=== PATIENT | female | born 1970 | race Caucasian/White ===

== ENCOUNTER 2018-04-11 10:43 | Emergency (ER) | payer SELFPAY ==
[2018-04-11] MEDS ORDERED: fentaNYL* 50 MCG/ML 2 ML VIAL (100 MCG VIAL) IV SLOW PU ONE (11:00)
[2018-04-11] MEDS ORDERED: Ketorolac INJ* 30 MG/ML 1 ML VIAL IV PUSH ONE (11:00)
--- NOTE | 2018-04-11 11:02 | ED ---
Adult Trauma - HPI Summary HPI Summary: This patient is a 48 year old F [facility] [place] /p being kicked in the ABD by a horse that occurred at 0800 this morning. Pt works as a hands assembler for [employer] and today while she was taking care of the horses she got kicked. She was able to finish her work before seeking medical attention. The patient rates the pain 3/10 in severity. Patient reports pain with breathing and labored breathing. Patient denies head injury and LOC. Pt went to [facility] and was sent here for further work up. Patient is currently menstruating. - History of Current Complaint Chief Complaint: EDTraumaMultiple Stated Complaint: KICKED BY A HORSE IN STOMACH Time Seen by Provider: 04/11/18 10:49 Hx Obtained From: Patient Mechanism of Injury: Blunt Trauma Ambulatory at the Scene: Yes Loss of Consciousness: no loss of consciousness Onset/Duration: Started Hours Ago, Still Present Onset of Pain: Immediate Onset Severity: Moderate Current Severity: Mild Pain Intensity: 3 Pain Scale Used: 0-10 Numeric Location: Abdomen/Pelvis Associated Signs & Symptoms: Positive: Abdominal Pain. Negative: Loss of Consciousness Related History: Occupational Injury - Allergy/Home Medications Allergies/Adverse Reactions: Allergies Allergy/AdvReac Type Severity Reaction Status Date / Time Iodinated Contrast- Oral and Allergy Intermediate Rash And Verified 04/11/18 12: 29 IV Dye Itching Home Medications: Home Medications Norgestimate-Ethinyl Estradiol [Estarylla 0.25-0.035 mg Tablet] 1 tab PO DAILY 04/11/18 [History Confirmed 04/11/18] PMH/Surg Hx/FS Hx/Imm Hx Endocrine/Hematology History: Denies: Hx Bone Marrow Disease, Hx Sickle Cell Disease, Hx Unexplained Bleeding Cardiovascular History: Denies: Hx Atrial Fibrillation, Hx Auto Implanted Cardiovert Defib, Hx Cardiomegaly, Hx Coronary Artery Disease, Hx Deep Vein Thrombosis, Hx Hypotension, Hx Myocardial Infarction, Hx Peripheral Vascular Disease Respiratory History: Denies: Hx Chronic Bronchitis, Hx Pulmonary Embolism GI History: Denies: Hx Gall Bladder Disease, Hx Hiatal Hernia History: Reports: Hx Kidney Infection Musculoskeletal History: Denies: Hx Rheumatoid Arthritis, Hx Congenital Bone Abnormalities, Hx Fibromyalgia Psychiatric History: Denies: Hx Schizophrenia, Hx Bipolar Disorder, Hx of Violent Episodes Against Others - Cancer History Hx Chemotherapy: No Hx Radiation Therapy: No Infectious Disease History: No Infectious Disease History: Denies: Traveled Outside the [place] in Last 30 Days - Family History Known Family History: Negative: Hypertension, Respiratory Disease, Blood Disorder - Social History Occupation: Employed Full-time Lives: With Family Alcohol Use: Occasionally Hx Substance Use: No Substance Use Type: Reports: None Hx Tobacco Use: No Smoking Status (MU): Never Smoked Tobacco Review of Systems Negative: Fever Positive: Other - pain with breathing and labored breathing. Positive: Abdominal Pain Negative: Syncope All Other Systems Reviewed And Are Negative: Yes Physical Exam - Summary Physical Exam Summary: Appearance: Well appearing, no pain distress Skin: there is slight redness in the RUQ Head/face: normal Eyes: EOMI, ARNIE ENT: normal Neck: supple, non-tender Respiratory: CTA, breath sounds present everywhere Cardiovascular: RRR, pulses symmetrical Abdomen: soft, TTP in the RUQ ad epigastrium Bowel Sounds: present Musculoskeletal: normal, strength/ROM intact Neuro: normal, sensory motor intact, A&Ox3 Triage Information Reviewed: Yes Vital Signs On Initial Exam: Initial Vitals Temp Pulse Resp BP Pulse Ox 97.7 F 80 16 143/95 100 04/11/18 10:46 04/11/18 10:46 04/11/18 10:46 04/11/18 10:46 04/11/18 10:46 Vital Signs Reviewed: Yes Diagnostics - Vital Signs Vital Signs Temp Pulse Resp BP Pulse Ox 04/11/18 10:46 97.7 F 80 16 143/95 100 - Laboratory Result Diagrams: 04/11/18 11:24 04/11/18 11:24 Lab Statement: Any lab studies that have been ordered have been reviewed, and results considered in the medical decision making process. - CT CT ABD/Pelvis CT Interpretation Completed By: Radiologist - NO ACUTE NONCONTRAST CT PATHOLOGY OF THE CHEST, ABDOMEN, OR PELVIS. Dr. Castillo has reviewed this report - Ultrasound No standard instances Ultrasound Interpretation Completed By: ED Physician - 4 View FAST performed by me is negative from free fluid Re-Evaluation - Re-Evaluation First Eval Re-Evaluation Time: 12:20 Change: Unchanged Comment: Pt is now reporting that she had a serious reaction to iodine when she was 15 years old. Second Eval Re-Evaluation Time: 12:55 Change: Improved Comment: Pt states her pain has improved. Adult Trauma Course/Dx - Course Course Of Treatment: Patient with blunt force injury from a horse to the right upper quadrant. Her lung sounds are clear and unlabored. A 4 view FAST ultrasound was performed at the bedside on arrival without any presence of free fluid. A CT was obtained however the patient informed us last minute that she had severe allergy to contrast dye and so these had to be performed without contrast. The chest was also done given that she was having some chest wall pain as well. There is no evidence for pulmonary contusion or sore solid organ injury on the skin. However, this is limited by lack of IV contrast. Her hemoglobin is normal and her pain is improved through course here. She will follow closely with her primary care physician and has been given strict return instructions regarding possibility of occult injury to solid organ. Assessment/Plan: Patient is currently menstruating which effected UA. - Diagnoses Differential Diagnosis/HQI/PQRI: Positive: Abrasion(s), Contusion(s), Fracture, Other - Intra-abdominal injury Provider Diagnoses: Abdominal wall contusion, Struck by horse Discharge - Sign-Out/Discharge Documenting (check all that apply): Patient Departure - Discharge Plan Condition: Improved Disposition: HOME Prescriptions: Ibuprofen TAB* [Motrin TAB* 600 MG] 600 mg PO Q8H PRN #15 tab PRN Reason: Pain traMADol TAB* [Ultram*] 50 mg PO Q8H PRN #8 tab MDD 3 PRN Reason: more severe pain Patient Education Materials: Blunt Abdominal Injury (ED) Forms: *Work Release Referrals: aPul Craven MD [Medical Doctor] - Additional Instructions: Ice sore areas. Return to the ER with fever, increased abdominal pain, weakness /fatigue, worse or other concerns as discussed. - Billing Disposition and Condition Condition: IMPROVED Disposition: Home - Attestation Statements Document Initiated by Scribe: Yes Documenting Scribe: Avelino Foster Provider For Whom Grey is Documenting (Include Credential): Wilton Castillo MD Scribe Attestation: Avelino Albarran scribed for Wilton Castillo MD on 04/11/18 at 1304. Scribe Documentation Reviewed: Yes Provider Attestation: The documentation as recorded by the Avelino rendon accurately reflects the service I personally performed and the decisions made by me, Wilton Castillo MD
[2018-04-11 11:47] LABS: ABS Basophils 0 10^3/ul (0-0.2); ABS Eosinophils 0.1 10^3/ul (0-0.6); ABS Lymphocytes 1.3 10^3/ul (1.0-4.8); ABS Monocytes 0.5 10^3/ul (0-0.8); ABS Neutrophils 8.6 10^3/ul (1.5-7.7); ABS Nucleated RBC 0 10^3/ul; Eosinophil % 0.8 % (0-6); Hematocrit 42 % (35-47); Hemoglobin 14.4 g/dl (12.0-16.0); Mean Corpuscular HGB Conc 34 g/dl (31-36); Mean Corpuscular Hemoglobin 32 pg (27-31); Mean Corpuscular Volume 92 fL (80-97); Mean Platelet Volume 8.6 um3 (7.4-10.4); Nucleated Red Blood Cells % 0.1; Platelet Count 234 10^3/ul (150-450); Red Blood Count 4.56 10^6/ul (4.00-5.40); Red Cell Distribution Width 13 % (10.5-15); White Blood Count 10.5 10^3/ul (3.5-10.8)
[2018-04-11 12:03] LABS: Urine Appearance Clear; Urine Blood 3+ (Negative); Urine Color Yellow; Urine Ketones Negative (Negative); Urine Protein Negative (Negative); Urine Red Blood Cell 2+(6-10/hpf) (Absent); Urine Specific Gravity 1.012 (1.010-1.030); Urine Urobilinogen Negative (Negative); Urine White Blood Cell Absent (Absent)
[2018-04-11 12:10] LABS: EGFR Non-African American 88.9 (>60)
[2018-04-11 12:32] VITALS: BP 139/81
--- NOTE | 2018-04-11 12:42 | RAD ---
HISTORY: RUQ / R chest injury pain after kick by horse COMPARISONS: None TECHNIQUE: Multiple contiguous axial CT scans were obtained of the chest, abdomen, and pelvis, without intravenous contrast enhancement. Coronal and sagittal multiplanar reformations are submitted for review.. Oral contrast was not administered. FINDINGS: Evaluation is limited due to the lack of intravenous contrast. This limits evaluation of the solid organs and vasculature. Specifically, the lack of intravenous contrast precludes evaluation of active arterial extravasation. CHEST NECK AND THYROID: The lower neck and thyroid are unremarkable. CHEST WALL: There is no lower cervical, axillary, or supraclavicular lymphadenopathy by size criteria. HEART AND PERICARDIUM: The heart is unremarkable. AORTA AND PULMONARY VASCULATURE: The aorta and pulmonary vasculature are normal. MEDIASTINUM: There is no mediastinal lymphadenopathy by size criteria. CHRISTEL: There is no hilar lymphadenopathy by size criteria. AIRWAY AND ESOPHAGUS: The airway is unremarkable, without endobronchial filling defect. The esophagus is grossly normal. LUNG PARENCHYMA: The lungs are clear. PLEURA: No pleural abnormalities are noted. BONES AND SOFT TISSUES: No bone or soft tissue abnormalities are noted. ABDOMEN/PELVIS: LIVER: There is low-attenuation lesion of the right lobe of liver measuring 1 cm in size and measure simple fluid in attenuation most consistent with a simple hepatic cyst. BILE DUCTS: There is no intrahepatic or extrahepatic biliary dilatation. GALLBLADDER: The gallbladder is normal, without pericholecystic inflammatory change. PANCREAS: The pancreas is normal, without mass or ductal dilatation. SPLEEN: Normal in size and appearance. UPPER GI TRACT: Evaluation of the gastrointestinal tract is limited by incomplete gastric distention. The upper GI tract is unremarkable. SMALL BOWEL & MESENTERY: The small bowel is normal in contour, course, and caliber. There is no obstruction or dilatation. COLON: The colon is normal in contour, course, caliber. There is no pericolonic inflammatory change. ADRENALS: Normal bilaterally. KIDNEYS: The kidneys are normal in shape, size, contour, and axis. There is no hydronephrosis or nephrolithiasis. BLADDER: The bladder is smooth in contour. PELVIC ORGANS: The uterus and adnexa are grossly normal for technique. AORTA: The aorta is normal. IVC: Unremarkable LYMPH NODES: There is no lymphadenopathy by size criteria. ABDOMINAL WALL: There is a small fat-containing umbilical hernia. BONES AND SOFT TISSUES: There are mild diffuse degenerative changes. OTHER: There is no free intraperitoneal fluid or free intraperitoneal gas. IMPRESSION: NO ACUTE NONCONTRAST CT PATHOLOGY OF THE CHEST, ABDOMEN, OR PELVIS.
== END 2018-04-11 13:16 | disposition home or self-care (01) ==
LOC: ED 10:43
DX: S30.1XXA Contusion of abdominal wall, initial encounter (principal); R10.9 Unspecified abdominal pain; W55.12XA Struck by horse, initial encounter; Y92.9 Unspecified place or not applicable
CPT/HCPCS: 36415; 71250; 74176; 80048; 81003; 81015; 85025; 99283; J1885; J3010